=== PATIENT | female | born 1940 | race Caucasian/White ===

== ENCOUNTER 2021-10-20 00:57 | Inpatient (IN) | payer MEDICARE ==
[~2021-10-20] VITALS: Ht 160 cm; Wt 61.8 kg
[2021-10-20] VITALS (16 sets, daily range): BP systolic 132–181; BP diastolic 49–106
[~2021-10-20 00:57] MED LIST: ALEN70TA79 MT; ASPI-986 MT; ATOR40TA70 MT; CYAN-50 PO; DILT60TA3 PO; INSLIS SUBCUT; LEVO500T2 MT; LISI2.5T47 MT; OMEGA PO; SYN175 MT
[2021-10-20] MEDS ORDERED: SODIUM CHLORIDE 0.9% 1,000 ML IV ONE (01:15)
[2021-10-20 03:33] LABS: BASOPHILS % 0.3 % (0.0-2.0); EOSINOPHILS % 0.9 % (0.0-5.0); HEMATOCRIT. 32.8 % (36.0-48.0); HEMOGLOBIN. 10.9 g/dL (12.0-16.0); LYMPHOCYTES % 15.5 % (20.0-50.0); MEAN CORPUSCULAR HEMOGLOBIN 31.6 pg (28.0-32.0); MEAN CORPUSCULAR VOLUME 95.3 fL (81.0-99.0); MEAN PLATELET VOLUME 9.7 fl (7.4-10.4); MONOCYTES % 7.3 % (2.0-8.0); PLATELET 142 x1000/uL (130-400); RED BLOOD CELL COUNT 3.44 mill/uL (4.2-5.4); RED CELL DISTRIBUTION WIDTH 17.7 % (11.6-14.6)
[2021-10-20 03:47] LABS: INR 1.2
[2021-10-20 03:58] LABS: CHLORIDE 99 mEq/L (98-107)
[2021-10-20] MEDS ORDERED: ASPIRIN 325MG TABLET PO ONE (04:15)
[2021-10-20] MEDS ORDERED: PIPERACILLIN/TAZOBACTAM 3.375GM/50ML PREMIX IV STA (04:17)
[2021-10-20] MEDS ORDERED: VANCOMYCIN 1G PREMIX 200 ML IV STA (04:17)
[2021-10-20] MEDS ORDERED: PIPERACILLIN/TAZ 3.375G PREMIX 50 ML IV NR (04:30)
[2021-10-20] MEDS ORDERED: IPRATROPIUM/ALBUTEROL 0.5-3(2.5)MG/3ML NEB HHN PRN (12:45)
[2021-10-20] MEDS ORDERED: HYDROCODONE/ACETAMINOPHEN 5/325MG TABLET PO PRN (12:45)
[2021-10-20] MEDS ORDERED: NALOXONE HCL 0.4MG/ML VIAL IV PRN (13:00)
[2021-10-20] MEDS ORDERED: POTASSIUM CHLORIDE 20MEQ/PACKET PO NR (13:13)
[2021-10-20] MEDS: CYANOCOBALAMIN 1000MCG TABLET PO SCH (13:56)
[2021-10-20] MEDS: LEVOTHYROXINE SODIUM 175MCG TABLET PO SCH (14:01)
[2021-10-20] MEDS ORDERED: DIVA500T3 MT (14:57)
[2021-10-20] MEDS ORDERED: DIVALPROEX SODIUM 500MG ER TABLET PO SCH (16:00)
[2021-10-20] MEDS: LORAZEPAM 2MG/ML CPJ IV PRN (16:42)
[2021-10-20] MEDS: DILTIAZEM HCL 30MG TABLET PO SCH (18:02)
[2021-10-20] MEDS: DIVALPROEX SODIUM 500MG ER TABLET PO SCH (21:19)
[2021-10-20] MEDS: ATORVASTATIN CALCIUM 40MG TABLET PO SCH (21:19)
[2021-10-21] VITALS (23 sets, daily range): BP systolic 127–174; BP diastolic 69–125
[2021-10-21] MEDS: DILTIAZEM HCL 30MG TABLET PO SCH ×3 (05:42→11:44)
[2021-10-21] MEDS: LORAZEPAM 2MG/ML CPJ IV PRN (05:42)
[2021-10-21 05:55] LABS: CHLORIDE 98 mEq/L (98-107)
[2021-10-21 06:20] LABS: BASOPHILS % 0.3 % (0.0-2.0); EOSINOPHILS % 2.1 % (0.0-5.0); HEMATOCRIT. 32.2 % (36.0-48.0); HEMOGLOBIN. 10.5 g/dL (12.0-16.0); LYMPHOCYTES % 23.7 % (20.0-50.0); MEAN CORPUSCULAR HEMOGLOBIN 30.9 pg (28.0-32.0); MEAN CORPUSCULAR VOLUME 94.4 fL (81.0-99.0); MEAN PLATELET VOLUME 9.8 fl (7.4-10.4); MONOCYTES % 13.6 % (2.0-8.0); NEUTROPHILS % 60.3 % (40.0-76.0); PLATELET 133 x1000/uL (130-400); RED BLOOD CELL COUNT 3.41 mill/uL (4.2-5.4); RED CELL DISTRIBUTION WIDTH 17.3 % (11.6-14.6)
[2021-10-21] MEDS: LEVOTHYROXINE SODIUM 175MCG TABLET PO SCH (08:29)
[2021-10-21] MEDS: CYANOCOBALAMIN 1000MCG TABLET PO SCH (08:30)
[2021-10-21] MEDS: DIVALPROEX SODIUM 500MG ER TABLET PO SCH (08:30)
[2021-10-21] MEDS: ASPIRIN 81MG EC TABLET PO SCH (08:30)
[2021-10-21] MEDS ORDERED: DIGOXIN 500MCG/2ML AMP IV NR ×2 (11:30→13:45)
[2021-10-21] MEDS ORDERED: HYDRALAZINE 20MG/ML VIAL IV PRN (13:15)
[2021-10-21] MEDS: DILTIAZEM HCL 60MG TABLET PO SCH ×2 (13:50→22:14)
[2021-10-21] MEDS ORDERED: MAGNESIUM 2 G PREMIX 50 ML IV NR (14:00)
[2021-10-21] MEDS: DIGOXIN 500MCG/2ML AMP IV SCH (17:13)
[2021-10-21] MEDS ORDERED: METO-385 PO (21:56)
[2021-10-21] MEDS ORDERED: TRAZ-251 PO (21:57)
[2021-10-21] MEDS ORDERED: LEVO112T2 PO (21:58)
[2021-10-21] MEDS ORDERED: APIX5TAB PO (21:58)
[2021-10-21] MEDS ORDERED: PARO30TA62 PO (21:59)
[2021-10-21] MEDS: DIVALPROEX SODIUM 500MG DR TABLET PO SCH (22:00)
[2021-10-21] MEDS ORDERED: HYDR25TA PO (22:03)
[2021-10-21] MEDS ORDERED: MEMA10TA55 PO (22:04)
[2021-10-21] MEDS ORDERED: INSU100I28 SQ ×2 (22:05→22:07)
[2021-10-21] MEDS ORDERED: INSU100V37 SQ (22:10)
[2021-10-21] MEDS: ATORVASTATIN CALCIUM 40MG TABLET PO SCH (22:14)
[2021-10-22] VITALS (12 sets, daily range): BP systolic 119–157; BP diastolic 22–100
[2021-10-22 06:11] LABS: CHLORIDE 97 mEq/L (98-107)
[2021-10-22 06:18] LABS: HEMATOCRIT. 34.8 % (36.0-48.0); HEMOGLOBIN. 11.5 g/dL (12.0-16.0); MEAN CORPUSCULAR HEMOGLOBIN 30.9 pg (28.0-32.0); MEAN CORPUSCULAR VOLUME 93.7 fL (81.0-99.0); MEAN PLATELET VOLUME 9.3 fl (7.4-10.4); PLATELET 139 x1000/uL (130-400); RED BLOOD CELL COUNT 3.72 mill/uL (4.2-5.4); RED CELL DISTRIBUTION WIDTH 16.9 % (11.6-14.6)
[2021-10-22] MEDS: LEVOTHYROXINE SODIUM 175MCG TABLET PO SCH (06:41)
[2021-10-22] MEDS: DILTIAZEM HCL 60MG TABLET PO SCH ×3 (06:42→22:38)
[2021-10-22] MEDS: DIVALPROEX SODIUM 500MG DR TABLET PO SCH ×2 (09:00→21:00)
[2021-10-22] MEDS: ASPIRIN 81MG EC TABLET PO SCH (09:00)
[2021-10-22 09:28] LABS: PLATELET ESTIMATE NORMAL
[2021-10-22] MEDS: CYANOCOBALAMIN 1000MCG TABLET PO SCH (09:31)
[2021-10-22] MEDS: MAGNESIUM OXIDE 400MG TABLET PO SCH (09:31)
[2021-10-22 10:08] LABS: CLARITY URINE CLEAR (CLEAR); COLOR URINE YELLOW (YELLOW); KETONES URINE TRACE (NEGATIVE); LEUKOCYTE ESTERASE URINE TRACE (NEGATIVE); NITRITE URINE NEGATIVE (NEGATIVE); OCCULT BLOOD URINE 2+ (NEGATIVE); PROTEIN URINE 2+ (NEGATIVE); SPECIFIC GRAVITY URINE 1.018 (1.005-1.030); UROBILINOGEN URINE 0.2 E.U./dL (0.2-1.0)
[2021-10-22] MEDS: LORAZEPAM 2MG/ML CPJ IV PRN (11:32)
[2021-10-22] MEDS ORDERED: CEFTRIAXONE 1 G PREMIX 50 ML IV SCH (12:00)
[2021-10-22] MEDS: CEFTRIAXONE 1,000 MG in DEXTROSE 5% WATER 50 ML IV SCH (14:03)
[2021-10-22] MEDS: DIGOXIN 500MCG/2ML AMP IV SCH (17:44)
[2021-10-22] MEDS ORDERED: DILTIAZEM HCL 5MG/ML 5ML VIAL IV PRN (21:45)
[2021-10-22] MEDS ORDERED: ENOXAPARIN 40MG/0.4ML SYR SUBCUT SCH (22:30)
[2021-10-22] MEDS: ENOXAPARIN 40MG/0.4ML SYR SUBCUT SCH (22:38)
[2021-10-22] MEDS: ATORVASTATIN CALCIUM 40MG TABLET PO SCH (22:38)
[2021-10-23] VITALS (12 sets, daily range): BP systolic 103–167; BP diastolic 54–96
[2021-10-23] MEDS: ACETAMINOPHEN 650MG/20.3ML UDC PO PRN ×2 (04:27→12:10)
[2021-10-23 06:42] LABS: HEMATOCRIT. 30.8 % (36.0-48.0); HEMOGLOBIN. 10.2 g/dL (12.0-16.0); MEAN CORPUSCULAR HEMOGLOBIN 31.4 pg (28.0-32.0); MEAN CORPUSCULAR VOLUME 94.5 fL (81.0-99.0); MEAN PLATELET VOLUME 10.1 fl (7.4-10.4); PLATELET 113 x1000/uL (130-400); RED BLOOD CELL COUNT 3.26 mill/uL (4.2-5.4); RED CELL DISTRIBUTION WIDTH 16.6 % (11.6-14.6)
[2021-10-23] MEDS: DILTIAZEM HCL 60MG TABLET PO SCH ×3 (06:47→21:43)
[2021-10-23] MEDS: LEVOTHYROXINE SODIUM 175MCG TABLET PO SCH (06:47)
[2021-10-23 09:53] LABS: PLATELET ESTIMATE SLIGHTLY DECREASED
[2021-10-23] MEDS: MAGNESIUM OXIDE 400MG TABLET PO SCH (10:14)
[2021-10-23] MEDS: ASPIRIN 81MG EC TABLET PO SCH (10:14)
[2021-10-23] MEDS: CYANOCOBALAMIN 1000MCG TABLET PO SCH (10:14)
[2021-10-23] MEDS: DIVALPROEX SODIUM 500MG DR TABLET PO SCH ×2 (10:22→21:14)
[2021-10-23] MEDS ORDERED: DEXTROSE 50% WATER 50ML SYRINGE IV PRN (10:45)
[2021-10-23] MEDS: BLOOD SUGAR DIAGNOSTIC STRIP TEST SCH ×3 (11:57→21:15)
[2021-10-23] MEDS: INSULIN LISPRO 100 UNITS/ML SUBCUT SCH ×3 (12:49→21:15)
[2021-10-23] MEDS: CEFTRIAXONE 1,000 MG in DEXTROSE 5% WATER 50 ML IV SCH (15:14)
[2021-10-23] MEDS: DIGOXIN 500MCG/2ML AMP IV SCH (18:39)
[2021-10-23] MEDS: ATORVASTATIN CALCIUM 40MG TABLET PO SCH (21:14)
[2021-10-23] MEDS: ENOXAPARIN 40MG/0.4ML SYR SUBCUT SCH (21:15)
[2021-10-24] VITALS (14 sets, daily range): BP systolic 83–138; BP diastolic 42–89
[2021-10-24] MEDS: ACETAMINOPHEN 650MG/20.3ML UDC PO PRN ×2 (02:58→09:45)
[2021-10-24] MEDS: DILTIAZEM HCL 60MG TABLET PO SCH (05:55)
[2021-10-24] MEDS ORDERED: NITROGLYCERIN 0.4MG TABLET SL SL PRN (07:15)
[2021-10-24] MEDS: BLOOD SUGAR DIAGNOSTIC STRIP TEST SCH ×4 (07:30→21:28)
[2021-10-24] MEDS: INSULIN LISPRO 100 UNITS/ML SUBCUT SCH ×4 (08:00→21:49)
[2021-10-24] MEDS: LEVOTHYROXINE SODIUM 175MCG TABLET PO SCH (08:44)
[2021-10-24] MEDS: DIVALPROEX SODIUM 500MG DR TABLET PO SCH ×2 (08:45→21:36)
[2021-10-24] MEDS: ASPIRIN 81MG EC TABLET PO SCH (08:45)
[2021-10-24] MEDS: CYANOCOBALAMIN 1000MCG TABLET PO SCH (09:45)
[2021-10-24] MEDS: MAGNESIUM OXIDE 400MG TABLET PO SCH (09:45)
[2021-10-24] MEDS: DILTIAZEM HCL 90MG TABLET PO SCH ×3 (09:48→18:00)
[2021-10-24] MEDS ORDERED: DILTIAZEM 125MG/125ML PMX 125 ML IV PRN (10:00)
[2021-10-24] MEDS ORDERED: LORAZEPAM 0.5MG TABLET PO PRN (10:45)
[2021-10-24] MEDS: CEFTRIAXONE 1,000 MG in DEXTROSE 5% WATER 50 ML IV SCH (14:00)
[2021-10-24] MEDS: ENOXAPARIN 40MG/0.4ML SYR SUBCUT SCH (21:31)
[2021-10-24] MEDS: ATORVASTATIN CALCIUM 40MG TABLET PO SCH (21:34)
[2021-10-25] VITALS (9 sets, daily range): BP systolic 95–149; BP diastolic 53–78
[2021-10-25] MEDS: DILTIAZEM HCL 90MG TABLET PO SCH ×3 (00:22→13:21)
[2021-10-25] MEDS: ACETAMINOPHEN 650MG/20.3ML UDC PO PRN (00:23)
[2021-10-25] MEDS: LEVOTHYROXINE SODIUM 175MCG TABLET PO SCH (06:38)
[2021-10-25] MEDS: BLOOD SUGAR DIAGNOSTIC STRIP TEST SCH ×2 (06:48→13:27)
[2021-10-25] MEDS: DIVALPROEX SODIUM 500MG DR TABLET PO SCH (08:30)
[2021-10-25] MEDS: MAGNESIUM OXIDE 400MG TABLET PO SCH (08:30)
[2021-10-25] MEDS: CYANOCOBALAMIN 1000MCG TABLET PO SCH (08:30)
[2021-10-25] MEDS: INSULIN LISPRO 100 UNITS/ML SUBCUT SCH ×2 (08:31→13:39)
[2021-10-25] MEDS: ASPIRIN 81MG EC TABLET PO SCH (08:31)
[2021-10-25] MEDS ORDERED: LEVO500T90 MT ×2 (12:05→13:44)
[2021-10-25] MEDS ORDERED: DILT240C91 MT ×2 (12:05→13:44)
== END 2021-10-25 15:02 | disposition home or self-care (01) | DRG 280 ==
LOC: ER 00:57 → 5EST 05:40 → ENRESERV 07:44
PROVIDERS: ADMIT Internal Medicine; ATTEND Internal Medicine
DX: I21.4 Non-ST elevation (NSTEMI) myocardial infarction (principal); G93.41 Metabolic encephalopathy; E44.1 Mild protein-calorie malnutrition; E87.2 Acidosis; F03.90 Unspecified dementia, unspecified severity, without behavioral disturbance, psychotic disturbance, mood disturbance, and anxiety; I10 Essential (primary) hypertension; E03.9 Hypothyroidism, unspecified; E11.649 Type 2 diabetes mellitus with hypoglycemia without coma; E87.6 Hypokalemia; F32.A Depression, unspecified; E78.5 Hyperlipidemia, unspecified; M81.0 Age-related osteoporosis without current pathological fracture; I95.9 Hypotension, unspecified; I48.0 Paroxysmal atrial fibrillation; E83.42 Hypomagnesemia; I08.0 Rheumatic disorders of both mitral and aortic valves; Z20.822 Contact with and (suspected) exposure to COVID-19; Z79.01 Long term (current) use of anticoagulants; Z79.899 Other long term (current) drug therapy; Z86.73 Personal history of transient ischemic attack (TIA), and cerebral infarction without residual deficits; Z86.79 Personal history of other diseases of the circulatory system; Z95.810 Presence of automatic (implantable) cardiac defibrillator; Z68.24 Body mass index [BMI] 24.0-24.9, adult; Z88.1 Allergy status to other antibiotic agents
CPT/HCPCS: 36415; 71045; 80048; 80053; 81003; 82140; 82962; 83605; 83735; 83880; 84484; 85025; 86850; 86900; 87426; 93005; 93306; 99291; C9803; J0696; J1160; J1650; J1815; J2060; J2543; J3370; J3475; J3490; J7030; J7060